=== PATIENT | male | born 2000 | race Two or more races ===

== ENCOUNTER 2019-07-23 10:27 | Emergency (ER) | payer MEDICAID ==
[~2019-07-23] VITALS: Ht 180.3 cm; Wt 79.3 kg
--- NOTE | 2019-07-23 10:54 | NUR ---
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
[2019-07-23 11:02] LABS: MICROSCOPIC NOT IND
--- NOTE | 2019-07-23 11:05 | NUR ---
THIS IS A 19 YO MALE WHO PRESENTS TO THE ER C/O NAUSEA AND A CONSTANT DULL ACHE THAT IS MID UPPER ABD QUAD AND WILL "RANDOMLY SHOOT UP TO AN 8/10 PAIN AND BE SHARP" X 2 DAYS. PT ORIGINALLY NOTICED IT WAS WORSE AFTER EATING BUT NOW STATES THAT PAIN HAS BEEN "JUST RANDOM". PT DENIES DIARRHEA OR VOMITING. PT AO X 4. SKIN WARM AND DRY. RESP EVEN AND UNLABORED. NO ACUTE DISTRESS NOTED AT THIS TIME.
[2019-07-23] MEDS ORDERED: SODIUM CHLORIDE 0.9% 1,000 ML IV ONE (11:23)
[2019-07-23] MEDS ORDERED: MORPHINE SULFATE 4 MG/ML, 1ML IVPush PRN (11:30)
[2019-07-23] MEDS ORDERED: SODIUM CHLORIDE FLUSH 10ML SYR IVF ONE (11:30)
[2019-07-23] MEDS ORDERED: ONDANSETRON 2MG/ML, 2ML IVPush ONE (11:30)
[2019-07-23] MEDS ORDERED: MORPHINE SULFATE 4 MG/ML, 1ML ONE (11:33)
[2019-07-23] MEDS ORDERED: ONDANSETRON 2MG/ML, 2ML ONE (11:33)
[2019-07-23 11:51] LABS: BASOPHILS # (AUTO) 0.03 x10^3/uL (0-0.1); BASOPHILS % (AUTO) 1 % (0-1); EOSINOPHILS # (AUTO) 0.21 x10^3/uL (0-0.4); EOSINOPHILS % (AUTO) 3 % (1-7); LYMPHOCYTES # (AUTO) 1.81 x10^3/uL (1-3.4); LYMPHOCYTES % (AUTO) 29 % (22-44); MD NO; MEAN CORPUSCULAR HEMOGLOBIN 31.6 pg (27.5-34.5); MEAN CORPUSCULAR HGB CONC 33.4 g/dL (33.2-36.2); MEAN CORPUSCULAR VOLUME 94.6 fL (81-97); MEAN PLATELET VOLUME 8.8 fL (7.4-10.4); MONOCYTES # (AUTO) 0.67 x10^3/uL (0.2-0.8); MONOCYTES % (AUTO) 11 % (2-9); NEUTROPHILS # (AUTO) 3.61 x10^3/uL (1.8-6.8); NEUTROPHILS % (AUTO) 57 % (42-75); PLATELET COUNT 195 x10^3/uL (130-400); RED BLOOD COUNT 4.64 x10^6/uL (4.38-5.82); RED CELL DISTRIBUTION WIDTH 13.3 % (9.4-14.8)
--- NOTE | 2019-07-23 12:00 | NUR ---
PT MEDICATED ORDERED FOR PAIN. PT REPORTS THAT PAIN WAS 3/10 BUT WENT TO AN 8/10 WITH AN EPISODE OF CRAMPING. PT AWARE WE ARE WAITING FOR LAB/IMAGING RESULTS. SIGNIFICANT OTHER AT BEDSIDE FOR EVAL. CALL LIGHT WITHIN REACH. WILL CONT TO MONITOR PT.
[2019-07-23 12:03] LABS: ALANINE AMINOTRANSFERASE 29 U/L (12-78); ALBUMIN 3.9 g/dL (3.4-5.0); ANION GAP 9 mmol/L (5-15); CALCIUM 8.9 mg/dL (8.5-10.1); CHLORIDE 108 mmol/L (98-107); CREATININE 0.88 mg/dL (0.7-1.3)
[2019-07-23 12:05] LABS: ALKALINE PHOSPHATASE 60 U/L (45-117); BILIRUBIN,TOTAL 0.4 mg/dL (0.2-1.0); TOTAL PROTEIN 7.1 g/dL (6.4-8.2)
--- NOTE | 2019-07-23 12:28 | NUR ---
PT TO IMAGING VIA [employer] AT THIS TIME.
[2019-07-23] MEDS ORDERED: OMNIPAQUE 350 MG/ML, 100ML BOTTLE ONE (12:41)
--- NOTE | 2019-07-23 13:30 | NUR ---
PT CURRENTLY RESTING ON [employer]. NO ACUTE DISTRESS NOTED AT THIS TIME. PT REPORTS PAIN IS TOLERABLE AT A 5/10. SIGNIFICANT OTHER AT BEDSIDE. PT ON CONT BP AND SPO2 MONITORS. CALL LIGHT WITHIN REACH. WILL CONT TO MONITOR PT.
--- NOTE | 2019-07-23 14:30 | NUR ---
PT CURRENTLY RESTING ON GURNEY. NO ACUTE DISTRESS NOTED. PT AO X 4. SKIN PWD. RESP EVEN AND UNLABORED. PT AWARE WE ARE WAITING FOR DC PAPERWORK. PT DENIES QUESTIONS ABOUT RESULTS DISCUSSED WITH MART MCMULLEN. SINGIFICANT OTHER AT BEDSIDE. CALL LIGHT WITHIN REACH. WILL CONT TO MONITOR PT.
[2019-07-23 15:05] VITALS: BP 121/75
== END 2019-07-23 15:07 | disposition home or self-care (01) ==
LOC: ED 11:32
DX: K52.9 Noninfective gastroenteritis and colitis, unspecified (principal)
CPT/HCPCS: 36415; 74177; 80053; 81003; 83690; 85025; 96361; 96374; 96375; 99285; J2270; J2405; J7030; Q9967

== ENCOUNTER 2020-09-20 18:43 | Emergency (ER) | payer MEDICAID ==
[~2020-09-20] VITALS: Ht 177.8 cm; Wt 77.5 kg
[2020-09-20 18:55] VITALS: BP 116/67
--- NOTE | 2020-09-20 19:16 | NUR ---
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
[2020-09-20] MEDS ORDERED: FLUORESCEIN OPHTHALMIC 1 MG STRIP ONE (19:20)
[2020-09-20] MEDS ORDERED: PROPARACAINE OPHTH 0.5%, 15ML ONE (19:21)
[2020-09-20] MEDS ORDERED: FLUORESCEIN OPHTHALMIC 1 MG STRIP LEFTEYE ONE (19:30)
[2020-09-20] MEDS ORDERED: PROPARACAINE OPHTH 0.5%, 15ML LEFTEYE ONE (19:30)
== END 2020-09-20 19:55 | disposition home or self-care (01) ==
LOC: ED 19:12
DX: S05.02XA Injury of conjunctiva and corneal abrasion without foreign body, left eye, initial encounter (principal); H57.12 Ocular pain, left eye; F17.210 Nicotine dependence, cigarettes, uncomplicated; X58.XXXA Exposure to other specified factors, initial encounter; Y93.89 Activity, other specified; Y92.89 Other specified places as the place of occurrence of the external cause; Y99.8 Other external cause status
CPT/HCPCS: 99406